=== PATIENT | female | born 1965 | race Caucasian/White ===

== ENCOUNTER 2024-06-21 17:48 | Emergency (ER) | payer OTHER ==
[~2024-06-21] VITALS: Ht 160 cm; Wt 58.1 kg
[~2024-06-21 17:48] MED LIST: Black Cohosh40 M1 PO; CALCAVITDA PO; ESCI10 PO; PROBIOTIC1 EA13; Sleep Aid25 MG PO
[2024-06-21 18:01] VITALS: BP 128/78
== END 2024-06-21 18:15 | disposition home or self-care (01) ==
LOC: ER 17:48
DX: S00.03XA Contusion of scalp, initial encounter (principal); W18.30XA Fall on same level, unspecified, initial encounter; Z79.899 Other long term (current) drug therapy
CPT/HCPCS: 99282